=== PATIENT | female | born 1980 | race Caucasian/White ===

== ENCOUNTER 2024-05-08 09:35 | Day surgery (SDC) | payer BC ==
[2024-05-07 10:12] LABS: HEMATOCRIT 40.8 % (37.0-47.0); HEMOGLOBIN 13.9 g/dL (12.0-16.0); MEAN CORPUSCULAR HEMOGLOBIN 29.3 pg (28.0-32.0); MEAN CORPUSCULAR HGB CONC 34.1 g/dL (32.0-36.0); MEAN CORPUSCULAR VOLUME 85.9 fL (83.0-99.0); MEAN PLATELET VOLUME 9.8 fL (9.4-12.3); PLATELET COUNT,PLT 382 K/uL (150-400); RED BLOOD CELL COUNT 4.75 M/uL (4.10-5.30); WHITE BLOOD CELL COUNT,WBC 6.91 K/uL (3.9-11.3)
[~2024-05-08 09:35] MED LIST: Albuterol 0.083% 2.5 MG/3 ML Neb Soln NEB PRN; HYDROmorphone 1 MG/ML Syringe IVPUSH PRN; Metoclopramide 10 MG/2 ML SDV IVPUSH PRN; Morphine 2 MG/ML SYRINGE IVPUSH PRN; Naloxone 0.4 MG/ML SDV IVPUSH PRN; Ondansetron 4 MG/2 ML SDV IVPUSH PRN; droPERidol 5 MG/2 ML SDV IVPUSH PRN; fentaNYL 50 MCG/ML SDV IVPUSH PRN
[2024-05-08] MEDS: Lactated Ringers 1,000 ML IV SCH (10:09)
[2024-05-08] MEDS: Scopalamine 1mg/3day Transdermal Patch TOP ONE (10:10)
[2024-05-08] MEDS ORDERED: Propofol 200 MG/20 ML SDV ONE (10:18)
[2024-05-08] MEDS ORDERED: dexmedeTOMIDine HCl 200 MCG/2 ML SDV ONE (10:19)
[2024-05-08] MEDS ORDERED: fentaNYL 100 MCG/2 ML SDV ONE (10:22)
[2024-05-08] MEDS ORDERED: Dexamethasone 4 MG/ML 5 ML MDV ONE (10:23)
[2024-05-08] MEDS ORDERED: Ondansetron 4 MG/2 ML SDV ONE (10:23)
[2024-05-08] MEDS ORDERED: Lidocaine 1% 5 ML VIAL ONE (10:23)
[2024-05-08] MEDS ORDERED: propofoL 50 ML ONE (11:36)
[2024-05-08] MEDS ORDERED: Ketorolac 30 MG/ML SDV ONE (12:22)
[2024-05-08 13:25] VITALS: BP 109/67; PULSE 49
== END 2024-05-08 13:48 | disposition home or self-care (01) ==
LOC: MW.SDS 09:35
PROVIDERS: ATTEND Obstetrics & Gynecology
DX: N84.0 Polyp of corpus uteri (principal); N92.0 Excessive and frequent menstruation with regular cycle; J45.990 Exercise induced bronchospasm; E07.9 Disorder of thyroid, unspecified; Z79.890 Hormone replacement therapy; Z88.8 Allergy status to other drugs, medicaments and biological substances
CPT/HCPCS: 36415; 58563; 84703; 85027; A9270; C1729; J0131; J1100; J1885; J2405; J2704; J3010; J7120; 00952; J3490